=== PATIENT | male | born 1985 | race Caucasian/White ===

== ENCOUNTER 2018-04-07 11:50 | Emergency (ER) | payer BC ==
[2018-04-07] MEDS ORDERED: Amoxicillin/Clavulanate TAB* 875 MG PO ONE (12:26)
[2018-04-07] MEDS ORDERED: cefTRIAXone VIAL(*) 250 MG VIAL IM ONE (12:32)
[2018-04-07] MEDS ORDERED: Lidocaine 1% MPF* 2 ML VIAL INJ ONE (12:32)
[2018-04-07] MEDS ORDERED: cefTRIAXone VIAL(*) 1,000 MG VIAL IM ONE (12:33)
--- NOTE | 2018-04-07 12:38 | UC ---
Bite Injury/Animal HPI - HPI Summary HPI Summary: patient was bit by his own dog 36 hours ago. there are 3 puncture wounds, 2 around the thumb one on the forearm, there is some swelling and erythema around the thumb and the wrist. His wrist is stiff from the swelling., he is afebrile, he cleaned the wound and has not had any other treatment. will update tetanus. - History of Current Complaint Stated Complaint: DOG BITE Time Seen by Provider: 04/07/18 11:59 Hx Obtained From: Patient Severity Currently: Moderate Severity Initially: Moderate Onset/Duration: Lasting Days Type of Bite: Animal Has Animal Been Immunized?: Yes Character: Puncture Aggravating Factor(s): Exertion Alleviating Factor(s): Nothing Associated Signs And Symptoms: Positive: Erythema, Swelling Hx of Bite: Unprovoked Animal Available for Observation: Yes Animal Control Notified: No - Allergies/Home Medications Allergies/Adverse Reactions: Allergies Allergy/AdvReac Type Severity Reaction Status Date / Time No Known Allergies Allergy Verified 04/07/18 12:30 PMH/Surg Hx/FS Hx/Imm Hx Previously Healthy: Yes - Family History Known Family History: Negative: Cardiac Disease, Hypertension Review of Systems All Other Systems Reviewed And Are Negative: Yes Constitutional: Positive: Negative Skin: Positive: Other - 3 wounds redness Eyes: Positive: Negative ENT: Positive: Negative Respiratory: Positive: Negative Cardiovascular: Positive: Negative Gastrointestinal: Positive: Negative Genitourinary: Positive: Negative Motor: Positive: Negative Neurovascular: Positive: Negative Musculoskeletal: Positive: Arthralgia, Myalgia Neurological: Positive: Negative Psychological: Positive: Negative Is Patient Immunocompromised?: No Physical Exam Triage Information Reviewed: Yes Appearance: Well-Appearing, Well-Nourished, Pain Distress Eye Exam: Normal ENT Exam: Normal Dental Exam: Normal Neck exam: Normal Respiratory Exam: Normal Cardiovascular Exam: Normal Cardiovascular: Positive: RRR, No Murmur, Pulses Normal Abdominal Exam: Normal Abdomen Description: Positive: Nontender, No Organomegaly, Soft Musculoskeletal Exam: Normal Musculoskeletal: Positive: Strength Intact, Edema @ - left wrist Neurological Exam: Normal Psychological Exam: Normal Skin: Positive: Significant Lesion(s) - 3 puncture wounds two to the thumb and 1 to the foresarm, non gaping, erythema of the hand and wrist noted, moderate swelling. decreased ROM in the wrist due to swelling Bite Injury Course/Dx - Course Course Of Treatment: hx obtained, exam performed ,meds reviewed, UTD on tetanus , IM and oral ABX given, educated on warm water soaks, and if not improving in the next 24 hours, he develops a fever or the redness climbs up the arms he is to go to the ER. - Differential Dx/Diagnosis Differential Diagnosis/HQI/PQRI: Cellulitis, Puncture, Deep Space Infection Provider Diagnosis: Dog bite of extremity, Cellulitis of left hand excluding fingers and thumb Discharge - Sign-Out/Discharge Documenting (check all that apply): Patient Departure All imaging exams completed and their final reports reviewed: No Studies - Discharge Plan Condition: Stable Disposition: HOME Prescriptions: Amoxicillin/Clavulanate TAB* [Augmentin TAB 875*] 875 mg PO BID #18 tab Patient Education Materials: Animal Bite (ED) Referrals: No Primary Care Phys,NOPCP [Primary Care Provider] - Additional Instructions: 1. take the medication as prescribed. 2. Warm water soaks multiple times a day for the next few days 3. Keep eleveated at rest 4. If you notice the redness increasing, climbing the arm, you develop increased pain, a fever or no improvment in 24-48 hours, pleae visit the ER for further evaluation. - Billing Disposition and Condition Condition: STABLE Disposition: Home - Attestation Statements Provider Attestation: I was available for consult. This patient was seen by the ERIC. The patient was not presented to, seen by, or examined by me
[2018-04-07 12:40] VITALS: BP 135/72
[2018-04-07] MEDS ORDERED: Lidocaine 1%* 5 ML VIAL ONE (12:40)
[2018-04-07] MEDS ORDERED: Lidocaine 1%* 5 ML VIAL INJ ONE (12:42)
[2018-04-07] MEDS ORDERED: Tetan/Diph/Pertus SYR(Tdap)* 0.5 ML SYR(BOOSTRIX) use SYR IM ONE (13:01)
== END 2018-04-07 13:25 | disposition home or self-care (01) ==
LOC: UCEAST 11:50
DX: S61.052A Open bite of left thumb without damage to nail, initial encounter (principal); S61.552A Open bite of left wrist, initial encounter; S51.852A Open bite of left forearm, initial encounter; L03.012 Cellulitis of left finger; W54.0XXA Bitten by dog, initial encounter; Y92.9 Unspecified place or not applicable
CPT/HCPCS: 90471; 90715; 96372; 99202; A9270-GY; G0463; J0696